=== PATIENT | female | born 1965 | race American Indian/Alaskan Native ===

== ENCOUNTER 2020-07-31 08:05 | Emergency (ER) | payer MEDICAID, OTHER ==
[2020-07-31] MEDS ORDERED: Ondansetron 4 MG/2 ML SDV ONE (08:06)
[2020-07-31] MEDS ORDERED: Sodium Chloride 0.9% 1,000 ML IV ONE (08:08)
[2020-07-31] MEDS ORDERED: Ondansetron 4 MG/2 ML SDV IVPUSH ONE (08:08)
--- NOTE | 2020-07-31 08:35 | EDM.PDOC ---
ED HPI GENERAL MEDICAL PROBLEM - General Chief Complaint: Gastrointestinal Problem Stated Complaint: NO TASTE OF SMELL VERY ILL Time Seen by Provider: 07/31/20 08:25 Source of Information: Reports: Patient, EMS. Denies: Old Records History Limitations: Reports: Other (no old records) - History of Present Illness INITIAL COMMENTS - FREE TEXT/NARRATIVE: 54 yo female visiting from [place], [place] and staying locally at a hotel presents via EMS with severe vomiting and diarrhea. No fever. No hematemesis. No melena or hematochezia. EMS gave Zofran 4 mg IV without control of her nausea. Her is with her. Has some abdominal pain, but this only began after the vomiting. No known exposures. not ill. Onset: Gradual Onset Date: 07/30/20 Onset Time: 16:30 Duration: Hour(s):, Constant Location: Reports: Abdomen, Generalized Quality: Reports: Ache Severity: Mild Improves with: Reports: None Worsens with: Reports: Other (vomiting) Context: Reports: Other (See HPI) Associated Symptoms: Reports: Malaise, Nausea/Vomiting. 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: Musculoskeletal History: Reports: Back Pain, Chronic - Past Surgical History Female Surgical History: Reports: Tubal Ligation Neurological Surgical History: Reports: Spinal Fusion Social & Family History - Tobacco Use Smoking Status *Q: Light Tobacco Smoker Years of Tobacco use: 36 Packs/Tins Daily: 0.5 - Caffeine Use Caffeine Use: Reports: Coffee - Alcohol Use Days Per Week of Alcohol Use: 2 Number of Drinks Per Day: 3 Total Drinks Per Week: 6 - Recreational Drug Use Recreational Drug Use: Yes Recreational Drug Type: Reports: Marijuana/Hashish Recreational Drug Use Frequency: Socially ED ROS GENERAL - Review of Systems Review Of Systems: See Below Constitutional: Reports: Malaise, Decreased Appetite. Denies: Fever, Chills HEENT: Reports: No Symptoms Respiratory: Reports: No Symptoms Cardiovascular: Reports: No Symptoms Endocrine: Reports: No Symptoms GI/Abdominal: Reports: Abdominal Pain (L sided and epigastric), Diarrhea, Nausea, Vomiting. Denies: Black Stool, Bloody Stool, Constipation, Distension, Flatus, Hematemesis, Hematochezia, Melena : Reports: No Symptoms Musculoskeletal: Reports: No Symptoms Skin: Reports: No Symptoms Neurological: Reports: No Symptoms Psychiatric: Reports: No Symptoms ED EXAM, GI/ABD - Physical Exam Exam: See Below Exam Limited By: No Limitations General Appearance: Alert, WD/WN, Mild Distress Eyes: Bilateral: Normal Appearance Ears: Normal External Exam, Normal Canal, Hearing Grossly Normal, Normal TMs Nose: Normal Inspection, No Blood Throat/Mouth: Normal Lips, Normal Oropharynx, Normal Voice, No Airway Compromise, Other (dry oral mucosa) Head: Atraumatic, Normocephalic Neck: Normal Inspection Respiratory/Chest: No Respiratory Distress, Lungs Clear, Normal Breath Sounds, No Accessory Muscle Use Cardiovascular: Regular Rate, Rhythm, No Edema. No: Tachycardia GI/Abdominal Exam: Soft, No Distention, Tender (mostly in epigastrium), Abnormal Bowel Sounds (slightly decreased). No: Non-Tender, Distended, Guarding, Rigid, Rebound Back Exam: Normal Inspection Extremities: Normal Inspection, No Pedal Edema Neurological: Alert, Oriented, CN II-XII Intact, Normal Cognition, No Motor/Sensory Deficits Psychiatric: Normal Affect, Normal Mood Skin Exam: Warm, Dry, Intact, Normal Color, No Rash Course - Vital Signs Last Recorded V/S: Last Vital Signs Temp 35.2 C L 07/31/20 08:19 Pulse 72 07/31/20 09:27 Resp 16 07/31/20 08:19 BP 177/81 H 07/31/20 09:27 Pulse Ox 97 07/31/20 09:27 - Orders/Labs/Meds Orders: Active Orders 24 hr Category Date Time Status CORONAVIRUS COVID-19, NELSON Routine Lab 07/31/20 08:51 Ordered Labs: Laboratory Tests 07/31/20 07/31/20 Range/Units 08:24 08:24 WBC 16.0 H (4.5-11.0) K/uL RBC 4.79 (3.30-5.50) M/uL Hgb 14.8 (12.0-15.0) g/dL Hct 47.2 (36.0-48.0) % MCV 99 H (80-98) fL MCH 31 (27-31) pg MCHC 31 L (32-36) % Plt Count 264 (150-400) K/uL Sodium 146 (140-148) mmol/L Potassium 3.6 (3.6-5.2) mmol/L Chloride 107 (100-108) mmol/L Carbon Dioxide 25 (21-32) mmol/L Anion Gap 14.4 H (5.0-14.0) mmol/L BUN 13 (7-18) mg/dL Creatinine 0.9 (0.6-1.0) mg/dL Est Cr Clr Drug Dosing 57.17 mL/min Estimated GFR (MDRD) > 60 (>60) Glucose 140 H (74-106) mg/dL Calcium 9.1 (8.5-10.1) mg/dL Lactate Dehydrogenase 219 (82-234) U/L C-Reactive Protein 0.94 H (0.0-0.3) mg/dL Meds: Medications Discontinued Medications Generic Name Dose Route Start Last Admin Trade Name Freq PRN Reason Stop Dose Admin Acetaminophen 1,000 mg 07/31/20 08:44 07/31/20 09:14 Tylenol Extra Strength PO 07/31/20 08:45 1,000 mg ONETIME ONE Administration Acetaminophen Confirm 07/31/20 09:17 Tylenol Extra Strength Administered 07/31/20 09:18 Dose 500 mg .ROUTE .STK-MED ONE Sodium Chloride 1,000 mls @ 1,000 mls/hr 07/31/20 08:08 07/31/20 08:25 Normal Saline IV 07/31/20 09:07 1,000 mls/hr .BOLUS ONE Administration Loperamide HCl 4 mg 07/31/20 09:15 07/31/20 09:14 Imodium PO 07/31/20 09:16 4 mg ONETIME ONE Administration Ondansetron HCl 4 mg 07/31/20 08:08 07/31/20 08:10 Zofran IVPUSH 07/31/20 08:09 4 mg ONETIME ONE Administration Ondansetron HCl Confirm 07/31/20 08:06 07/31/20 09:15 Zofran Administered 07/31/20 08:07 Not Given Dose 4 mg .ROUTE .STK-MED ONE Departure - Departure Time of Disposition: 10:00 Disposition: Home, Self-Care 01 Condition: Fair Clinical Impression: Nausea vomiting and diarrhea - Discharge Information *PRESCRIPTION DRUG MONITORING PROGRAM REVIEWED*: No *COPY OF PRESCRIPTION DRUG MONITORING REPORT IN PATIENT DACIA: No Instructions: Nausea and Vomiting, Adult, [id number], Diarrhea, Adult, [id number] Referrals: PCP,None [Primary Care Provider] - Forms: ED Department Discharge Additional Instructions: Take loperamide for diarrhea control per package instructions, this is over the counter. Use Zofran as directed for nausea control, an Rx was sent for you to [facility] pharmacy. Use acetaminophen for pain or fever control. Have a clear liquid diet and advance diet slowly as tolerated. Avoid exposure to others as you are certainly contagious. We did a Covid test today that will be available in 3-4 days per labs estimate(this is a send out). Recheck if you are worse. Get adequate rest and wash your hands often. Sepsis Event Note (ED) - Evaluation Sepsis Screening Result: No Definite Risk - Focused Exam Vital Signs: Vital Signs Temp Pulse Resp BP Pulse Ox 07/31/20 09:27 72 177/81 H 97 07/31/20 08:19 35.2 C L 78 16 156/73 H 95 - My Orders Last 24 Hours: My Active Orders 07/31/20 08:51 CORONAVIRUS COVID-19, NELSON Routine - Assessment/Plan Last 24 Hours: My Active Orders 07/31/20 08:51 CORONAVIRUS COVID-19, NELSON Routine
[2020-07-31] MEDS ORDERED: Loperamide 1 MG/7.5 ML 7.5 ML UD Cup PO ONE (08:43)
[2020-07-31] MEDS ORDERED: Acetaminophen 500 MG Tab PO ONE (08:44)
[2020-07-31] MEDS ORDERED: Loperamide 2 MG Cap PO ONE (09:15)
[2020-07-31] MEDS ORDERED: Acetaminophen 500 MG Tab ONE (09:17)
== END 2020-07-31 10:19 | disposition home or self-care (01) ==
LOC: JP.ED 08:05
DX: R11.2 Nausea with vomiting, unspecified (principal); R19.7 Diarrhea, unspecified; F17.210 Nicotine dependence, cigarettes, uncomplicated; J44.9 Chronic obstructive pulmonary disease, unspecified; Z20.828 Contact with and (suspected) exposure to other viral communicable diseases
CPT/HCPCS: 36415; 80048; 83615; 85027; 86140; 87635; 96361; 96374; 99284; A9270; J2405; J7030; U0002